=== PATIENT | female | born 1985 | race African-American/Black ===

== ENCOUNTER 2020-05-14 20:27 | Emergency (ER) | payer BC ==
--- NOTE | 2020-05-14 20:53 | ER Document Report ---
ED Medical Screen (RME) - General Chief Complaint: Shortness Of Breath Stated Complaint: SHORTNESS OF BREATH Time Seen by Provider: 05/14/20 20:48 Primary Care Provider: CRISTOPHER SORENSEN [Primary Care Provider] - Follow up as needed Mode of Arrival: Ambulatory Information source: Patient Notes: Patient is a 34-year-old female comes emergency room complaint of increasing s hortness of breath. Patient states she tested positive on the rapid Covid test this past Monday which [place]. She notes she had been exposed to her sister was positive last week. Patient states originally last week she had tested negative and this time positive on Monday. She states she has been staying home trying to stay quarantine she wears a mask in place given the in the house but she still diet. She states her shortness of breath has decreased over the past 24 hours it is hard to take a deep breath. She also states that she has pain in the anterior chest that radiates to her back. Patient denies any cardiac history. She does not smoke drink or do drugs. Physical examination: Patient is a well-nourished well-developed 34-year-old female though no apparent distress pleasant. Ill in presentation. Cardiac: Patient is tachycardic on monitor at 137 bpm Lungs: Bilateral breath sounds with breath sounds decreased throughout no rhonchi rales or wheeze are deferred at this time. Patient sat is 96% on room air in a sitting position. HEENT: Examination head and upper airway showed nasal mucosa be mildly erythematous and edematous no rhinorrhea noted. Posterior pharynx shows no drainage or exudates or erythema. I have greeted and performed a rapid initial assessment of this patient. A comprehensive ED assessment and evaluation of the patient, analysis of test results and completion of the medical decision making process will be conducted by additional ED providers. Dictation of this chart was performed using voice recognition software; therefore, there may be some unintended grammatical errors. TRAVEL OUTSIDE OF THE [place] IN LAST 30 DAYS: No Physical Exam - Vital signs Vitals: Temp Pulse Resp BP Pulse Ox 100.0 F 130 H 18 177/102 H 97 05/14/20 20:31 05/14/20 20:31 05/14/20 20:31 05/14/20 20:31 05/14/20 20:31 Course - Vital Signs Vital signs: Temp Pulse Resp BP Pulse Ox 100.0 F 130 H 18 177/102 H 97 05/14/20 20:31 05/14/20 20:31 05/14/20 20:31 05/14/20 20:31 05/14/20 20:31 Doctor's Discharge - Discharge Referrals: LOCALMD,NO [Primary Care Provider] - Follow up as needed
--- NOTE | 2020-05-14 21:30 | RADIOLOGY REPORT (SQ) ---
EXAM DESCRIPTION: CHEST SINGLE VIEW CLINICAL HISTORY: 34 years Female, Short of breath COMPARISON: None. FINDINGS: Lungs: There is patchy multifocal opacification in the lungs left greater than right. This is predominantly nodular and groundglass. Interstitial opacifications also present. No pneumothorax or pleural effusion. Mediastinum: Heart size is enlarged. Mediastinum is normal. Bones: Osseous structures are normal. IMPRESSION: Multifocal parenchymal consolidation left greater than right consistent with multifocal pneumonia.
[2020-05-14] MEDS ORDERED: NORMAL SALINE 1000 ML 1,000 ML IV ONE (21:35)
[2020-05-14] MEDS ORDERED: ACETAMINOPHEN 325 MG TABLET PO ONE (21:58)
--- NOTE | 2020-05-14 22:04 | ER Document Report ---
ED General - General Chief Complaint: Flu Symptoms Stated Complaint: SHORTNESS OF BREATH Time Seen by Provider: 05/14/20 20:48 Primary Care Provider: CRISTOPHER SORENSEN [NO LANCE MD] - Follow up as needed Mode of Arrival: Ambulatory Information source: Patient Notes: Patient presents to the ER for evaluation of dry cough with shortness of breath and chest tightness that has gradually worsened since the of this month. She states she was diagnosed with COVID-19 on the . The patient states she was exposed to COVID-19 by her sister sometime around the or of this month. She did have an initial negative Covid swab on the . She was asymptomatic at that time. She denies nausea or vomiting. She denies diarrhea. She denies abdominal pain. She denies low back pain or dysuria. Nursing notes reviewed and past medical, social, and family histories reviewed and validated. TRAVEL OUTSIDE OF THE [place] IN LAST 30 DAYS: No Past Medical History - General Information source: Patient - Social History Smoking Status: Never Smoker Chew tobacco use (# tins/day): No Frequency of alcohol use: Occasional Drug Abuse: None Lives with: Family Family History: Reviewed & Not Pertinent Patient has suicidal ideation: No Patient has homicidal ideation: No - Past Medical History Cardiac Medical History: Reports: None Pulmonary Medical History: Reports: None EENT Medical History: Reports: None Neurological Medical History: Reports: None Endocrine Medical History: Reports: None Renal/ Medical History: Reports: None Malignancy Medical History: Reports: None GI Medical History: Reports: None Musculoskeletal Medical History: Reports None Skin Medical History: Reports None Psychiatric Medical History: Reports: None Traumatic Medical History: Reports: None Infectious Medical History: Reports: None Past Surgical History: Reports: None - Immunizations Immunizations up to date: Yes Hx Diphtheria, Pertussis, Tetanus Vaccination: Yes Review of Systems - Review of Systems Notes: Constitutional: Positive for fever. HENT: Negative for sore throat. Eyes: Negative for visual changes. Cardiovascular: Negative for chest pain. Respiratory: Positive for shortness of breath and chest tightness. Gastrointestinal: Negative for abdominal pain, vomiting or diarrhea. Genitourinary: Negative for dysuria. Musculoskeletal: Negative for back pain. Skin: Negative for rash. Neurological: Negative for headaches, weakness or numbness. 10 point ROS negative except as marked above and in HPI. Physical Exam - Vital signs Vitals: Temp Pulse Resp BP Pulse Ox 100.0 F 130 H 18 177/102 H 97 05/14/20 20:31 05/14/20 20:31 05/14/20 20:31 05/14/20 20:31 05/14/20 20:31 - Notes Notes: CONSTITUTIONAL: Patient is wellappearing. She is in mild distress. SKIN: Warm, dry, and intact without rash EYES: Extraocular movements are grossly intact, clear conjunctiva HENT: Normocephalic, atraumatic, moist mucus membranes NECK: No obvious swelling, normal range of motion PULMONARY: Normal chest rise and fall. Breath sounds clear and equal bilatera lly. No respiratory distress or stridor CARDIOVASCULAR: Regular tachycardic rate. No murmurs, rubs, gallops. Distal extremities are warm and well perfused. ABDOMINAL: Soft, nontender NEUROLOGIC: Normal speech, moves all extremities. Cranial nerves are within normal limits. MUSCULOSKELETAL: No gross deformities, atraumatic PSYCHIATRIC: Normal mood and affect Course - Re-evaluation Re-evalutation: 05/15/20 00:01 Rechecked patient who has responded well to treatment in the ER. Discussed with patient: results, diagnosis, treatment plan, and need for follow-up. Return to the emergency department warnings were given. All questions and concerns were addressed. The plan is agreed with and understood. Patient is stable and ready for discharge. - Vital Signs Vital signs: Temp Pulse Resp BP Pulse Ox 100.0 F 130 H 18 177/102 H 97 05/14/20 20:31 05/14/20 20:31 05/14/20 20:31 05/14/20 20:31 05/14/20 20:31 - Laboratory Result Diagrams: 05/14/20 22:45 Laboratory results interpreted by me: 05/14/20 05/14/20 22:14 22:45 MCV 77 L MCH 25.6 L RDW 14.6 H Urine Protein >=500 H Urine Ascorbic Acid 40 H Discharge - Discharge Clinical Impression: Pneumonia due to COVID-19 virus Condition: Good Disposition: HOME, SELF-CARE Instructions: Viral Pneumonia ([facility]) Additional Instructions: Be sure to return to the emergency room if your symptoms change or worsen. Prescriptions: Azithromycin [Zithromax 250 mg Tablet] 250 mg PO ASDIR PRN #6 tablet PRN Reason: Referrals: LOCALMD,NO [NO LOCAL MD] - Follow up as needed
[2020-05-14 22:59] LABS: ABSOLUTE LYMPHOCYTES (AUTO) 1.5 10^3/uL (0.5-4.7); ABSOLUTE MONOCYTES (AUTO) 0.3 10^3/uL (0.1-1.4); ABSOLUTE NEUT (AUTO) 3.9 10^3/uL (1.7-8.2); BASOPHILS % (AUTO) 0.1 % (0-2); EOSINOPHILS % (AUTO) 0.1 % (0-6); HEMATOCRIT 36.4 % (36.0-47.0); HEMOGLOBIN 12.1 g/dL (12.0-15.5); LYMPHOCYTES % (AUTO) 26.5 % (13-45); MEAN CORPUSCULAR HEMOGLOBIN 25.6 pg (27.0-33.4); MEAN CORPUSCULAR HGB CONC 33.2 g/dL (32.0-36.0); MEAN CORPUSCULAR VOLUME 77 fl (80-97); PLATELET COUNT 202 10^3/uL (150-450); RED BLOOD COUNT 4.73 10^6/uL (3.72-5.28); RED CELL DISTRIBUTION WIDTH 14.6 % (11.5-14.0); SEGMENTED NEUTROPHILS % (AUTO) 68.3 % (42-78); TOTAL CELLS COUNTED % (AUTO) 100 %; WHITE BLOOD COUNT 5.8 10^3/uL (4.0-10.5)
[2020-05-14 23:15] LABS: APPEARANCE,URINE SLIGHTLY-CLOUDY; BILIRUBIN,URINE NEGATIVE (NEGATIVE); GLUCOSE, URINE NEGATIVE (NEGATIVE); KETONES,URINE NEGATIVE (NEGATIVE); LEUKOCYTE ESTERASE,URINE NEGATIVE (NEGATIVE); NITRITE,URINE NEGATIVE (NEGATIVE); PROTEIN,URINE >=500 mg/dL (NEGATIVE); URINE SPECIFIC GRAVITY 1.027; UROBILINOGEN,URINE NEGATIVE mg/dL (<2.0)
[2020-05-14 23:17] LABS: COLOR,URINE DARK YELLOW
[2020-05-15 00:02] VITALS: BP 146/66
--- NOTE | 2020-05-15 11:10 | EKG REPORT ---
SEVERITY:- BORDERLINE ECG - SINUS TACHYCARDIA NONSPECIFIC ST-T CHANGES- INFERIOR LEADS : Confirmed by: Jesús Prather MD 15-May-2020 11:09:44
== END 2020-05-15 00:10 | disposition home or self-care (01) ==
LOC: ER 20:27
DX: U07.1 COVID-19 (principal); J12.89 Other viral pneumonia; R50.9 Fever, unspecified; R06.02 Shortness of breath; R07.9 Chest pain, unspecified
CPT/HCPCS: 93005; 99285; 96360; 36415; 87040; 87086; 83605; 85025; 81025; 81001; 84484; 71045; 93010; J7030